=== PATIENT | female | born 1955 | race Caucasian/White ===

== ENCOUNTER 2024-03-21 10:19 | Emergency (ER) | payer MEDICARE, SELFPAY ==
[2024-03-21] VITALS (7 sets, daily range): BP systolic 133–194; BP diastolic 63–90; PULSE 75–117; RESP 15–32; TEMP 36.6; O2SAT 96–100; BMI 27.4
--- NOTE | 2024-03-21 10:29 | ED.ARRPALP ---
HPI - Arrhythmia/Palpitations General Chief Complaint: Arrhythmia/Palpitations Stated Complaint: has a fib and feels like going in and out of it Time Seen by Provider: 03/21/24 10:26 History of Present Illness HPI narrative: Patient 68-year-old female history of paroxysmal atrial fibrillation on Eliquis presenting today with palpitations. She reports that she is not on rate control medication she seldomly in atrial fib but felt her heart racing a couple of times this morning. She felt her heart flip-flopping around and then she felt herself get out of it and went back into it now she feels like she is out of it again. Sometime during the she also felt like she had some left-sided jaw pain as well. She has MS and some facial nerve issues but this felt a little bit different. She has some mild shortness of breath but no significant dyspnea with exertion or orthopnea. She is visiting here from [place]. No other symptoms no abdominal pain nausea or vomiting. She is currently in sinus rhythm on the monitor Related Data Previous Rx's Medication Instructions Recorded metoprolol succinate 25 mg 12.5 mg (1/2 x 25 mg) PO DAILY PRN 03/21/24 tablet,extended release 24 hr palpitations #10 tabs Allergies Allergy/AdvReac Type Severity Reaction Status Date / Time ceftriaxone [From Rocephin] Allergy Verified 03/21/24 10:25 Sulfa (Sulfonamide Allergy Verified 03/21/24 10:25 Antibiotics) Exam Initial Vital Signs Initial Vital Signs: Vital Signs Blood Pressure 194/90 H 03/21/24 10:24 GENERAL: Alert pleasant 68-year-old female and in no acute distress. HEENT: Head atraumatic,EOMI, pupils reactive, face symmetric, moist mucous membranes CARDIOVASCULAR: Regular rate and rhythm without murmurs, rubs or gallops. RESPIRATORY: Breath sounds equal bilaterally, no wheezes rales or rhonchi. ABDOMEN: Soft, nontender. Normoactive bowel sounds all 4 quadrants. No guarding or rebound. EXTREMITIES: Normal range of motion, no clubbing or edema. Neurovascularly intact NEUROLOGICAL: Alert and oriented x4.Normal gait and speech. Cranial nerves II through XII grossly intact. SKIN: Warm, dry, no laceration, no petechiae, no rashes or lesions. Course Orders Ordered: ED Orders 03/21/24 10:30 Complete Blood Count AUTO DIFF Stat Comprehensive Metabolic Panel Stat Lipase Stat Magnesium Stat NT-proBNP (BNP-Adult 18+) Stat PTT Partial Thromboplastin Jose Alejandro Stat Prothrombin Time INR Stat Troponin & CK Cardiac Panel Stat 03/21/24 10:31 XR chest 1V Stat EKG-12 Lead Stat Discontinued Medications Aspirin (Aspirin 81 Mg Chew Tab) 324 mg PO NOW ONE Stop: 03/21/24 10:32 Last Admin: 03/21/24 10:58 Dose: Not Given Documented By: CTS Vital Signs Vital signs: Vital Signs - 8 hr 03/21/24 10:24 03/21/24 10:25 03/21/24 10:26 Temperature 97.8 F Pulse Rate 109 H 117 H Respiratory Rate 16 Blood Pressure 194/90 H 194/90 H Pulse Oximetry 98 100 Oxygen Delivery Method Room Air 03/21/24 10:30 03/21/24 10:33 03/21/24 10:33 Temperature Pulse Rate 90 88 Respiratory Rate 18 20 Blood Pressure 156/67 H Pulse Oximetry 98 99 Oxygen Delivery Method 03/21/24 11:00 03/21/24 11:00 03/21/24 11:30 Temperature Pulse Rate 75 77 Respiratory Rate 15 32 H Blood Pressure 133/63 Pulse Oximetry 96 99 Oxygen Delivery Method 03/21/24 11:30 Temperature Pulse Rate Respiratory Rate Blood Pressure 136/64 Pulse Oximetry Oxygen Delivery Method MDM - Arrhythmia/Palpitations Lab Data 03/21/24 10:30 03/21/24 10:30 Labs: Lab Results 03/21/24 Range/Units 10:30 WBC 6.8 (4.5-11.0) X10^3/uL RBC 5.41 H (4.0-5.2) X10^6/uL Hgb 13.7 (12.0-16.0) g/dL Hct 42.6 (36-46) % MCV 78.7 L (80-100) fL MCH 25.3 L (26-34) PG MCHC 32.1 (30-36) % RDW 16.9 H (11.6-14.8) % Plt Count 251 (150-400) X10^3/uL Neut % (Auto) 64.5 (50-75) % Lymph % (Auto) 24.6 L (25-40) % Bowman % (Auto) 8.8 (3-14) % Eos % (Auto) 1.4 L (2-4) % Baso % (Auto) 0.7 (0-2) % Neut # (Auto) 4400 (7958-4522) /uL Lymph # (Auto) 1700 (9432-1378) /uL Bowman # (Auto) 600 (0-900) /uL Eos # (Auto) 100 (0-450) /uL Baso # (Auto) 0 (0-100) /uL PT 15.1 H (9.4-12.5) SECONDS INR 1.3 (0.9-1.3) APTT 41 H (25.1-36.5) SECONDS Sodium 141 (137-145) mmol/L Potassium 3.7 (3.4-5.1) mmol/L Chloride 106 (98-107) mmol/L Carbon Dioxide 24 (22-32) mmol/L BUN 18 H (7-17) mg/dL Creatinine 0.56 (0.52-1.04) mg/dL Estimated GFR > 60 (>60) mL/min BUN/Creatinine Ratio 32.1 H (6-22) Glucose 75 L (80-110) mg/dL Calcium 9.4 (8.4-10.2) mg/dL Magnesium 2.1 (1.6-2.3) mg/dL Total Bilirubin 0.3 (0.2-1.3) mg/dL AST 30 (14-36) IU/L ALT 29 (<35) IU/L Alkaline Phosphatase 95 (38-126) U/L Total Creatine Kinase 64 (30-135) U/L Troponin I < 0.012 (0.01-0.034) ng/mL NT-Pro-B Natriuret Pep 83 (<125) pg/mL Total Protein 7.9 (6.3-8.2) g/dL Albumin 4.5 (3.5-5.0) g/dL Globulin 3.4 (1.7-4.1) g/dL Albumin/Globulin Ratio 1.3 (1.0-2.8) Lipase 46 (23-300) U/L Imaging Data Chest x-ray: Radiologist's Impresson: PROCEDURE: XR CHEST 1V INDICATIONS: chest pain TECHNIQUE: One view of the chest was acquired. COMPARISON: None. FINDINGS: Surgical changes and devices: None. Lungs and pleura: An incomplete inspiratory result is noted, causing a crowded appearance to the lung markings. No focal infiltrates are seen. No pneumothorax or significant pleural effusions are seen. Mediastinum: Mediastinal contours appear normal. Heart size is normal. Bones and chest wall: No suspicious bony lesions. Overlying soft tissues appear unremarkable. IMPRESSION: Low lung volumes, without an acute abnormality seen by plain film. Dictated by: Evan Tamez M.D. on 03/21/2024 at 9:50 ECG Data Attestation: I personally reviewed and interpreted this ECG as follows: Interpretation: Normal sinus rate 90 IA interval 156 QRS [address] changes MDM Narrative Medical decision making narrative: MDM CC: Palpitations Complicating co-morbidities: Paroxysmal atrial fibrillation on Eliquis Medical records reviewed: None to review Differential considered: Arrhythmia acute coronary syndrome congestive heart failure pulmonary embolism Exam documented above, pertinent findings include: Appears well nontoxic regular rate and rhythm breath sounds clear no peripheral or pitting edema Lab Test results independently reviewed as above. Pertinent findings: CBC: WBC 6.8 hemoglobin 13.7 hematocrit 42.6 platelets 251 CMP'; sodium 141 potassium 3.7 chloride 106 carbon dioxide 24 BUN 18 creatinine 0.5 glucose 70 Bilirubin liver enzymes and lipase within normal limits Troponin negative BNP 83 Independently reviewed EKG as above sinus rhythm without ischemia Imaging studies independently reviewed: No acute cardiopulmonary process Consultations: None Treatments: None Re-evaluations: Patient remained stable on the monitor in his sinus rhythm Discussion: Patient has a history of paroxysmal atrial fibrillation on Eliquis but no rate controlling medications. She reports that she has not needed it for many years. She currently is in sinus rhythm heart rate 83. Symptoms are most consistent with AFib she did have some jaw tingling which lasted a few minutes but went away. She has no chest pain or pain or significant shortness of breath. Unlikely to be pulmonary embolism taking Eliquis which she has not missed any doses No evidence of congestive heart failure or fluid overload No evidence of infection At this time discussed with patient and has been having metoprolol on hand in case she should need it while traveling she understands how and when to use it and to follow-up with her doctor. Her blood pressure and heart rate could tolerate without issue Discharge Plan Departure Patient Disposition: Home Clinical Impression: Atrial fibrillation Instructions: DI for Atrial Fibrillation Activity Restrictions/Additional Instructions: *You have been diagnosed with atrial fibrillation *What to do: At this time blood work is overall reassuring. My will give you a prescription for metoprolol to take it your having palpitations *Continue to take medications as directed Metoprolol 12.5 mg take 1 if you are having palpitations wait 2 hours if still having palpitations may take another. Do not take more than 2 *Follow up with your primary care provider in 2-3 days or call [phone] *Return to ER if you should have persistent palpitations dizziness lightheadedness chest pain shortness [or] any new, worsening or concerning symptoms Prescriptions: New metoprolol succinate 25 mg tablet extended release 24 hr 12.5 mg PO DAILY PRN (Reason: palpitations) Qty: 10 0RF Stand Alone Forms: Patient Portal/API
--- NOTE | 2024-03-21 10:31 | EKG_ITS ---
[id number] [address] Test Date: 2024-03-21 Pat Name: Lou Wood Department: Room: Gender: Female Inside Technical Sales Representative: NGOZI : [id number] Requested By: Order Number: [id number] Reading MD: Yoni Aguilar MD Measurements Intervals [place] Rate: 90 P: 64 MO: 156 QRS: -3 QRSD: 76 T: 49 QT: 356 QTc: 435 Interpretive Statements Normal sinus rhythm Minimal voltage criteria for LVH, may be normal variant ( R in aVL ) Nonspecific ST abnormality Electronically Signed On 03-23-2024 7:51:59 PDT by Yoni Aguilar MD
[2024-03-21 10:39] LABS: Add Manual Diff / Slide Review NO; Basophils Absolute Auto 0 /uL (0-100); Basophils Percent Auto 0.7 % (0-2); Eosinophils Absolute Auto 100 /uL (0-450); Eosinophils Percent Auto 1.4 % (2-4); Hematocrit 42.6 % (36-46); Hemoglobin 13.7 g/dL (12.0-16.0); Lymphocytes Absolute Auto 1700 /uL (1100-4500); Lymphocytes Percent Auto 24.6 % (25-40); Mean Corpuscular HGB Conc 32.1 % (30-36); Mean Corpuscular Hemoglobin 25.3 PG (26-34); Mean Corpuscular Volume 78.7 fL (80-100); Monocytes Absolute Auto 600 /uL (0-900); Monocytes Percent Auto 8.8 % (3-14); Neutrophils Absolute Auto 4400 /uL (1500-7000); Neutrophils Percent Auto 64.5 % (50-75); Platelet Count 251 X10^3/uL (150-400); Red Blood Cell Count 5.41 X10^6/uL (4.0-5.2); Red Cell Distribution Width 16.9 % (11.6-14.8); White Blood Cell Count 6.8 X10^3/uL (4.5-11.0)
[2024-03-21 10:45] LABS: INR 1.3 (0.9-1.3); Prothrombin Time 15.1 SECONDS (9.4-12.5)
[2024-03-21 10:48] LABS: PTT Partial Thromboplastin Tim 41 SECONDS (25.1-36.5)
[2024-03-21 10:49] LABS: Alanine Aminotransferase 29 IU/L (<35); Albumin 4.5 g/dL (3.5-5.0); Albumin Globulin Ratio 1.3 (1.0-2.8); Alkaline Phosphatase 95 U/L (38-126); Aspartate Aminotransferase 30 IU/L (14-36); BUN Creatinine Ratio 32.1 (6-22); Bilirubin Total 0.3 mg/dL (0.2-1.3); Blood Urea Nitrogen 18 mg/dL (7-17); Calcium 9.4 mg/dL (8.4-10.2); Carbon Dioxide 24 mmol/L (22-32); Chloride 106 mmol/L (98-107); Creatine Kinase 64 U/L (30-135); Estimated Glomerular Filt Rate > 60 mL/min (>60); Globulin 3.4 g/dL (1.7-4.1); Glucose 75 mg/dL (80-110); Lipase 46 U/L (23-300); Magnesium 2.1 mg/dL (1.6-2.3); Potassium 3.7 mmol/L (3.4-5.1); Sodium 141 mmol/L (137-145); Total Protein 7.9 g/dL (6.3-8.2)
[2024-03-21 11:00] LABS: HEMOLYSIS < 15 (0-50); NT-proBNP (BNP-Adult 18+) 83 pg/mL (<125)
[2024-03-21 11:01] LABS: Troponin I < 0.012 ng/mL (0.01-0.034)
== END 2024-03-21 11:36 | disposition home or self-care (01) ==
PROVIDERS: Emergency Provider Emergency Medicine
DX: I48.0 Paroxysmal atrial fibrillation (principal); R07.9 Chest pain, unspecified; Z79.01 Long term (current) use of anticoagulants
CPT/HCPCS: 36415; 71045; 80053; 82550; 83690; 83735; 83880; 84484; 85025; 85610; 85730; 93005; 93010; 99284